=== PATIENT | female | born 1995 | race African-American/Black ===

== ENCOUNTER 2018-05-05 21:09 | Inpatient (IN) | payer OTHER, SELFPAY ==
[2018-05-05 22:13] LABS: #Eosinphils 0.1 thou/uL (0.0-0.7); #Lymphocytes 1.8 thou/uL (1.20-3.40); #Monocytes 1.3 thou/uL (0.11-0.59); #Neutrophils 8.5 thou/uL (1.40-6.50); %Basophils 0.1 % (0.0-1.0); %Eosinophils 0.5 % (0.0-10.0); %Lymphocytes 15.8 % (21.0-51.0); %Monocytes 10.8 % (0.0-10.0); %Neutrophils 72.8 % (42.0-75.0); Hemoglobin 12.7 g/dL (12.0-16.0); Mean Corpuscular Hemoglobin 27.9 pg (27.0-31.0); Mean Corpuscular Volume 84.5 fL (78.0-98.0); Mean Platelet Volume 7.5 fL (7.4-10.4); Platelet Count 343 thou/uL (130-400); RBC Distribution Width 12.4 % (11.5-14.5); Red Blood Cell (RBC) Count 4.56 mill/uL (4.20-5.40); White Blood Cell (WBC) Count 11.7 thou/uL (4.8-10.8)
[2018-05-05 22:32] LABS: ALT (SGPT) 25 U/L (8-55); AST (SGOT) 22 U/L (5-34); Albumin 3.8 g/dL (3.5-5.0); Alkaline Phosphatase 65 U/L (40-150); Anion Gap 19 mmol/L (10-20); BUN (Urea Nitrogen) 8 mg/dL (7.0-18.7); Bilirubin, Total 0.6 mg/dL (0.2-1.2); Calc. Creatinine Clearance 0 mL/min (70-130); Carbon Dioxide 20 mmol/L (22-29); Chloride 99 mmol/L (98-107); Estimated GFR-MDRD Greater than 90; Globulin 4.5 g/dL (2.4-3.5); Glucose 74 mg/dL (70-105); Lipase 18 U/L (8-78); Potassium 3.9 mmol/L (3.5-5.1); Protein, Total 8.3 g/dL (6.0-8.3); Sodium 134 mmol/L (136-145)
[2018-05-05 23:14] LABS: Bilirubin Small (Negative); Blood, Urine Negative (Negative); Clarity CLEAR (Clear); Glucose, Urine (Dipstick) Negative (Negative); Leukocyte Moderate (Negative); Nitrite Negative (Negative); Protein, Urine (Dipstick) Trace mg/dL (Neg-Trace); Specific Gravity, Urine 1.024 (1.002-1.036)
[2018-05-05 23:17] LABS: Pathc Cast-AUWi Flag 3.34 (0-2.49)
[2018-05-05 23:24] LABS: Hyaline Casts/LPF 0-3 HYALINE CAST LPF (0-3 Hyaline)
[2018-05-05 23:26] LABS: Bacteria/HPF Rare-Few HPF (None Seen)
[2018-05-05 23:27] LABS: Yeast-All Forms Rare HPF (None Seen)
[2018-05-05] MEDS ORDERED: Morphine 4 MG/ML VIAL ONE (23:27)
--- NOTE | 2018-05-05 23:39 | CT ---
CT ABDOMEN AND PELVIS WITH IV CONTRAST 05/05/18 PROVIDED CLINICAL HISTORY: Abdominal pain, history of recent gastric sleeve. FINDINGS: There is a small right pleural effusion with adjacent passive atelectasis. Atelectatic changes seen a t the left lung base. There are postoperative changes of the gastric sleeve procedure demonstrated. There is no evidence fo r contrast extravasation. There is a triangular/wedge shaped area of diminished attenuation seen invo lving the medial aspects of the spleen cranially. There is no inflammatory fat stranding. There is no evidence for a focal fluid collection to suggest abscess. Foci of free intraperitoneal air are noted most conspicuously at the posteromedial aspect of the spleen, presumably postoperative in nature. So ft tissue gas is also seen within the anterior abdominal wall left of midline. There is no evidence for bowel obstruction. There is minimal nonspecific free fluid present within th e pelvis. The appendix appears normal. The gallbladder appears normal by CT. Density alteration withi n the subcutaneous adipose layer of the right mid abdomen is likely on the basis of site of surgical change. The osseous structures demonstrate no concerning lytic or blastic lesions. IMPRESSION: 1. Postoperative changes of gastric sleeve procedure without evidence for leak or abscess. 2. Focus of diminished attenuation involving the spleen could reflect an area of splenic infarct ion or splenic hematoma. 3. Pneumoperitoneum and small amount of free pelvic fluid, presumably postoperative in nature. 4. Small right pleural effusion and bibasilar subsegmental atelectasis. POS: [facility]
[2018-05-06] MEDS ORDERED: Morphine 4 MG/ML VIAL ONE (00:08)
[2018-05-06] MEDS ORDERED: Ondansetron ODT 4 MG TAB PO PRN (02:36)
[2018-05-06] MEDS: Sodium Chloride 0.9% 1,000 ML IV SCH ×3 (03:16→22:52)
[2018-05-06 03:43] VITALS: BMI 50.2
[2018-05-06] MEDS: Morphine 4 MG/ML VIAL SLOW IVP PRN ×3 (04:13→20:26)
--- NOTE | 2018-05-06 05:00 | HP ---
CHIEF COMPLAINT: Left-sided abdominal pain. HISTORY OF PRESENT ILLNESS: This patient is a 22-year-old female, who goes to college at [employer]. The patient underwent a gastric sleeve procedure on 04/[address] [place] [address] Zhang. The patient reported that subsequent to her procedure, she experienced a great deal of pain and was only able to get up on her own and shower 2 days ago, which was 7 days post procedure. She developed new pain last night, which was on the left flank area. She described as sharp and severe. It radiated all the way up to her neck, causing her a substantial headache. She tried to lie down, but that caused the pain to be much more severe to the point she was having a difficult time breathing. She subsequently presented to the emergency department. She denies having any fevers or chills. She has had no nausea or vomiting. She has had some difficulty swallowing because she tends to be gagging, even trying to take the liquids. REVIEW OF SYSTEMS: CONSTITUTIONAL: The patient had disruption of sleep only due to the pain. ENT: No hearing, vision, taste, or smell abnormalities. GI: She does have a gagging when trying to swallow, but no diarrhea or constipation. CV: The patient had a brief episode of chest pain that resolved, associated with her abdominal pain. She has had no palpitations or edema. PULMONARY: She did have a little bit of shortness of breath today associated with the pain. She had no cough, no wheezing. : No dysuria, frequency, nocturia, or incontinence. SKIN: No lesions or rashes. NEURO: No numbness, weakness, or tingling. PSYCH: Anxiety and depression post surgery, but believes that is better now. ENDOCRINE: No polyuria or polydipsia. All other systems were reviewed and all pertinent positives and negatives were noted in the HPI. PAST MEDICAL HISTORY: None. PAST SURGICAL HISTORY: Gastric sleeve procedure on 04/26/2018. FAMILY HISTORY: Notable for diabetes on her father side of the family. The patient denies any family history of lupus, rheumatoid or other autoimmune diseases. She also denies any family history of sickle cell disease. SOCIAL HISTORY: Nonsmoker, nondrinker, nondrug user. She is single. She is full code. Her aunt, Betty Camacho, will be her surrogate decision maker should that become necessary. ALLERGIES: NONE. MEDICATIONS: 1. Tylenol #3. 2. Tramadol. PHYSICAL EXAMINATION: VITAL SIGNS: BP 139/80, pulse 96, respirations 18, temperature 98.6, and O2 saturation 94% on room air. GENERAL APPEARANCE: Age-appropriate female, in no distress. She is awake, alert, oriented, extremely pleasant, and cooperative. HEENT: PERRL. No OP lesions. NECK: Supple and symmetric without lymphadenopathy, JVD, or carotid bruits. HEART: Regular rate and rhythm without murmurs, gallops, or rubs. LUNGS: Clear to auscultation bilaterally with good chest wall expansion and air exchange. ABDOMEN: Reveals some very vague tenderness in the left abdomen without specific localization. She has healing puncture wounds from the laparoscopic procedure. EXTREMITIES: Warm and dry with no edema, erythema, or tenderness. No clubbing. PSYCH: The patient has normal affect and behavior. NEUROLOGICAL: The patient has spontaneous movement of all extremities with no evidence of focal defects. LABORATORY DATA: White count 11.7, hemoglobin 12.7, platelets 343. Sodium 134, potassium 3.9, chloride 99, CO2 is 20, BUN 8, creatinine 0.75, glucose 74, AST 22, ALT 25, albumin 3.8. Urinalysis shows some ketones, small bilirubin, moderate leukocyte esterases, 11-20 white cells, 11-[address] abdomen and pelvis shows the evidence of recent gastric sleeve procedure with no evidence of complications there. There is a focus of diminished attenuation involving the spleen, reflecting possible infarct or hematoma. There is pneumoperitoneum and small amount of free pelvic fluid presumably postoperative and a small right pleural effusion with some bibasilar subsegmental atelectasis. IMPRESSION AND PLAN: Apparent splenic infarct. Cannot determine based on the imaging whether this is hematoma or infarct. Certainly could be either given the recent surgery, she has been started on heparin for the potential of rapid reversal given her recent surgical intervention and the small possibility that this could be hematoma that could worsen as well. We will continue some IV fluids and pain management for the patient. We will ask Dr. Thompson to evaluate the patient as well. Job ID: [id number]
[2018-05-06 08:24] LABS: Anion Gap 16 mmol/L (10-20); BUN (Urea Nitrogen) 6 mg/dL (7.0-18.7); Calc. Creatinine Clearance 301 mL/min (70-130); Carbon Dioxide 20 mmol/L (22-29); Chloride 104 mmol/L (98-107); Estimated GFR-MDRD Greater than 90; Glucose 75 mg/dL (70-105); Sodium 136 mmol/L (136-145)
[2018-05-06] MEDS ORDERED: Heparin 5,000 UNITS/ML VIAL SC SCH (09:00)
[2018-05-06 09:06] LABS: #Lymphocytes 2.3 thou/uL (1.20-3.40); #Monocytes 1.4 thou/uL (0.11-0.59); #Neutrophils 7.9 thou/uL (1.40-6.50); %Basophils 0.3 % (0.0-1.0); %Eosinophils 0.2 % (0.0-10.0); %Lymphocytes 19.5 % (21.0-51.0); %Monocytes 12.2 % (0.0-10.0); %Neutrophils 67.8 % (42.0-75.0); Hemoglobin 10.6 g/dL (12.0-16.0); Mean Corpuscular HGB CONC 32.1 g/dL (32.0-36.0); Mean Corpuscular Hemoglobin 26.9 pg (27.0-31.0); Mean Corpuscular Volume 83.8 fL (78.0-98.0); Mean Platelet Volume 7.5 fL (7.4-10.4); Platelet Count 311 thou/uL (130-400); RBC Distribution Width 12.2 % (11.5-14.5); Red Blood Cell (RBC) Count 3.95 mill/uL (4.20-5.40); White Blood Cell (WBC) Count 11.6 thou/uL (4.8-10.8)
--- NOTE | 2018-05-06 13:52 | CON ---
DATE OF CONSULTATION: 05/06/2018 CHIEF COMPLAINT: Abdominal pain, status post gastric sleeve. HISTORY OF PRESENT ILLNESS: This is a 22-year-old female, college student, who presents after gastric sleeve on 04/[address] [place] [address]. Zhang. She was doing all right initially at home on a liquid diet. She was struggling with the protein shake requirements and by doing the protein, she started to have more difficulty with thick liquids and started to have dry heaving at times and nausea. In the last few days, she was drinking less and then she developed some sharp pain in her left abdomen, radiates up the left flank to the neck. No fevers or chills. No diarrhea. No drainage from her incisions. Her CT scan has now revealed a small splenic infarct, but no obvious leak. PAST MEDICAL HISTORY: Otherwise negative. PAST SURGICAL HISTORY: As above. MEDICATIONS: At home; 1. Tylenol No. 3. 2. Tramadol. SOCIAL HISTORY: No smoking. No alcohol or other drugs. REVIEW OF SYSTEMS: Ten system review of systems otherwise negative unless described above. PHYSICAL EXAMINATION: VITAL SIGNS: Blood pressure 148/84, pulse 95, respirations 20, she is afebrile. HEENT: Sclerae anicteric. Oropharynx clear. NECK: No lymphadenopathy. CHEST: Clear. HEART: Regular rate and rhythm. ABDOMEN: Soft, appropriately tender at the incisions. EXTREMITIES: No ischemia or edema to extremities. LABORATORY DATA: White blood cell count is 11, hemoglobin is 10, and platelet count is 311. Sodium 136, potassium 4.0, creatinine is 0.67. CT scan shows a small amount of expected postop free air, postop changes of sleeve without leak. Small area of splenic infarct versus hematoma. ASSESSMENT: 1. Postop day #[address] scan showing no leak or intraabdominal complications. 2. Likely small splenic infarct related to mobilization of short gastrics during surgery. This is usually supportive treatment only. I do not recommend any prolonged blood thinners for it. She can continue her daily prophylactic Lovenox for deep venous thrombosis prophylaxis as previously prescribed by Dr. Zhang. RECOMMENDATIONS: Continue IV fluids tonight. Continue clear liquids. Likely be discharged home tomorrow. No further treatment for this splenic infarct needed. Job ID: [id number]
--- NOTE | 2018-05-06 16:32 | PDOC.PN ---
- Subjective Encounter Start Date: 05/06/18 Encounter Start Time: 10:00 Subjective: pt up in bed no complains - Objective Resuscitation Status - Order Detail: 05/06/18 02:36 Resuscitation Status Routine Resuscitation Status: FULL: Full Resuscitation Discussed with: patient Vital Signs & Weight: Vital Signs (12 hours) Temp Pulse Resp BP Pulse Ox 05/06/18 15:19 98.6 F 96 20 148/88 H 100 05/06/18 11:10 98.4 F 95 20 148/84 H 97 05/06/18 08:44 97 05/06/18 07:23 98.4 F 90 18 125/77 97 Weight Admit Weight 316 lb Weight 316 lb I&O: 05/05/18 05/06/18 05/07/18 06:59 06:59 06:59 Intake Total 200 Balance 200 Result Diagrams: 05/06/18 06:31 05/06/18 06:31 Phys Exam - Physical Examination Neck: no nodes, no JVD, supple, full ROM Respiratory: no wheezing, no rales, no rhonchi, wheezing present, clear to auscultation bilateral Cardiovascular: RRR, no significant murmur, no rub, gallop, irregular Gastrointestinal: soft, non-tender, no distention, positive bowel sounds Dx/Plan (1) Abdominal pain Code(s): R10.9 - UNSPECIFIED ABDOMINAL PAIN Status: Acute (2) Splenic infarct Code(s): D73.5 - INFARCTION OF SPLEEN Status: Acute (3) Anemia Code(s): D64.9 - ANEMIA, UNSPECIFIED Status: Acute - Plan will continue home medication -: mild anemia most likley due to recent surgery * . Review of Systems - Review of Systems Respiratory: negative: Cough, Dry, Shortness of Breath, Hemoptysis, SOB with Excertion, Pleuritic Pain, Sputum, Wheezing Cardiovascular: negative: chest pain, palpitations, orthopnea, paroxysmal nocturnal dyspnea, edema, light headedness, other Gastrointestinal: negative: Nausea, Vomiting, Abdominal Pain, Diarrhea, Constipation, Melena, Hematochezia, Other - Medications/Allergies Allergies/Adverse Reactions: Allergies Allergy/AdvReac Type Severity Reaction Status Date / Time No Known Drug Allergies Allergy Verified 05/06/18 03:17 Medications: Current Medications Enoxaparin Sodium (Lovenox) 40 mg SC 2100 VIANEY Sodium Chloride (Normal Saline 0.9%) 1,000 mls @ 100 mls/hr IV .Q10H VIANEY Last Admin: 05/06/18 11:55 Dose: Not Given Morphine Sulfate (Morphine) 4 mg SLOW IVP Q4H PRN PRN Reason: Moderate to Severe Pain (6-10) Last Admin: 05/06/18 08:50 Dose: 4 mg Ondansetron HCl (Zofran Odt) 4 mg PO Q6H PRN PRN Reason: Nausea/Vomiting Pantoprazole Sodium (Protonix) 40 mg PO DAILY [facility] Sodium Chloride (Flush - Normal Saline) 10 ml IVF Q12HR [facility] Last Admin: 05/06/18 08:38 Dose: Not Given Sodium Chloride (Flush - Normal Saline) 10 ml IVF PRN PRN PRN Reason: Saline Flush
[2018-05-06] MEDS ORDERED: Enoxaparin Sodium 40 MG/0.4 ML SYRINGE SC SCH (21:00)
[2018-05-07] MEDS: Morphine 4 MG/ML VIAL SLOW IVP PRN (00:22)
[2018-05-07] MEDS: Sodium Chloride 0.9% 1,000 ML IV SCH (08:22)
[2018-05-07] MEDS ORDERED: cefTRIAXone\\ROCEPHIN 1 GM in Sodium Chloride 0.9% 100 ML IVPB SCH (14:15)
[2018-05-07 16:09] VITALS: BP 134/91; TEMP 98.6
--- NOTE | 2018-05-08 05:45 | DIS ---
DATE OF ADMISSION: 05/05/2018 DATE OF DISCHARGE: 05/07/2018 DISCHARGE DIAGNOSES: As of the following; 1. Left-sided abdominal pain, secondary to a splenic infarct. 2. Obesity, underwent a gastric sleeve about 1-1/2 week ago. HOSPITAL COURSE: The patient is a 22-year-old female with obesity, who recently had a gastric sleeve done in [place], presented to the hospital with left-sided abdominal pain. She did have a CT of abdomen and pelvis which indicated postoperative changes in the gastric sleeve procedure without any evidence of leak. She also had a focus diminished attenuation involving the spleen, which could reflect a splenic infarct versus a hematoma. A little bit of pneumoperitoneum and the small amount of free pelvic fluid, most likely secondary to postoperative was noted in her abdomen and also a small right pleural effusion was noted. The patient at this time was also seen by Surgery, who stated that the splenic infarct was most likely secondary related to mobilization of the short gastrics during surgery and usually indicated a supportive treatment only. The patient was continued on her regular diet that was prescribed by her surgeon. She will be discharged home with her home medications. Also of note, there was some indication that the patient stated that she was very nauseated and could not tolerate the protein drinks that were supplied to her by her surgeon. I did emphasize that she needs to follow up with the surgeon in regard to this and also she needs to try and take the Zofran every 6 hours and then try the protein drinks since that is very essential except for just drinking water and popsicles. I described this to the patient and the patient's family member, who was at the bedside in detail about this. The patient did understand. She will be discharged home with the following medications; hydrocodone 7.5/325 one p.o. q.6 hours p.r.n. as needed, Zofran 4 mg q.6 hours p.r.n., Phenergan 25 mg q.6 hours p.r.n., omeprazole 40 mg daily, and Lovenox 40 mg subcu daily. Again, she will be discharged home. She will follow up with her primary care doctor. There were no changes in her medications. She will continue whatever that was prescribed to her by her original surgeon and also she will follow up with him as needed. PHYSICAL EXAMINATION: VITAL SIGNS: As of the following; temperature 98.5, pulse 87, respirations 14, 99% on room air, and blood pressure 124/85. GENERAL: She is awake, alert, and oriented x3. Does not appear in distress. CV: S1, S2 present. No murmurs, rubs, or gallops. ABDOMEN: Soft and nontender. Bowel sounds are present x2. EXTREMITIES: No edema. Again, she will be discharged home and will follow up with her primary care doctor. Job ID: [id number]
== END 2018-05-07 14:40 | disposition home or self-care (01) | DRG 815 ==
LOC: ERS 21:09 → SURG A 23:45
PROVIDERS: ADMIT Internal Medicine; ATTEND Internal Medicine
DX: D73.5 Infarction of spleen (principal); Z68.43 Body mass index [BMI] 50.0-59.9, adult; D64.9 Anemia, unspecified; E66.9 Obesity, unspecified; Z93.1 Gastrostomy status
CPT/HCPCS: 36415; 74177; 80048; 80053; 81003; 81015; 83690; 85025; 96361; 96374; 96376; J1650; J2270